=== PATIENT | female | born 1995 | race Caucasian/White ===

== ENCOUNTER 2018-11-21 05:54 | Day surgery (SDC) | payer BC ==
[2018-11-17 16:41] VITALS: BMI 25.7
[~2018-11-21] VITALS: Ht 160 cm; Wt 64.7 kg
[2018-11-21] VITALS (10 sets, daily range): BP systolic 102–116; BP diastolic 56–70; PULSE 60–92; RESP 14–22; Ht 160 cm; Wt 64.7 kg
[2018-11-21] MEDS ORDERED: CEFAZOLIN 2 GM/50 ML (PMX) 50 ML IVPB ONE (06:00)
[2018-11-21] MEDS ORDERED: LACTATED RINGER'S 1,000 ML IV* SCH (06:00)
[2018-11-21] MEDS ORDERED: BUPIVACAINE 0.5% (SDV) 30 ML INJ ONE (07:10)
[2018-11-21] MEDS ORDERED: LIDOCAINE 1%/EPI (1:100,000) (MDV) 20 ML ONE (07:11)
[2018-11-21] MEDS ORDERED: POLYMYXIN/BACITRACIN 1L IRRIG ONE (07:11)
[2018-11-21] MEDS ORDERED: GENTAMICIN 80 MG INJ ONE (07:13)
--- NOTE | 2018-11-21 07:14 | PREAC ---
Date/Time of Note Date/Time of Note DATE: 11/21/18 TIME: 07:14 Anesthesia Eval and Record Evaluation Time Pre-Procedure Interview DATE: 11/21/18 TIME: 07:14 Age 22 Sex female NPO: 8 hrs Preoperative diagnosis Left axillary tumor Planned procedure Excision of tumor and flap repair Past Medical History Past Medical History: None Surgery & Anesthesia Issues No known issue Meds Anticoagulation: No Beta Gino within 24 hr: No Reason Beta Gino not given: Pt. not on B-Gino No Active Prescriptions or Reported Meds Current Medications Lactated Ringer's 1,000 ml @ 25 mls/hr Q24H IV* ; Start 11/21/18 at 06:00; Stop 11/22/18 at 21:59 Meds reviewed: Yes Allergies Coded Allergies: No Known Allergy (Unverified , 11/21/18) Allergies Reviewed: Yes Labs/Studies Labs Reviewed: Reviewed by anesthesiologist test: Negative Pre-procedure Exam Airway: Adequate mouth opening Mallampati: Mallampati I Teeth: Normal Lung: Normal Heart: Normal ASA Physical Status ASA physical status: 1 Emergency: None Planned Anesthetic General/MAC: LMA Planned Pain Management Parenteral pain med Pre-operative Attestations Prior to commencing anesthesia and surgery, the patient was re-evaluated, there was verification of: *The patient's identity *The results of appropriate recent lab work and preoperative vital signs *The above evaluation not changing prior to induction *Anesthetic plan, risk benefits, alternative and complications discussed with patient/family; questions answered; patient/family understands, accepts and wishes to proceed. PEDRITO PRATER MD Nov 21, 2018 07:14
[2018-11-21] MEDS ORDERED: MIDAZOLAM (2 MG/ML) 5 ML CUP PO ONE (07:15)
[2018-11-21] MEDS ORDERED: PROPOFOL 20 ML ONE (07:30)
[2018-11-21] MEDS ORDERED: LIDOCAINE 2% (SDV) 5 ML INJ ONE (07:30)
[2018-11-21] MEDS ORDERED: ONDANSETRON 4 MG INJ ONE (07:55)
[2018-11-21] MEDS ORDERED: MEPERIDINE 100 MG INJ ONE (07:55)
[2018-11-21] MEDS ORDERED: METOCLOPRAMIDE 10 MG INJ ONE (07:55)
[2018-11-21] MEDS ORDERED: CEFAZOLIN 1 GM INJ ONE (07:55)
--- NOTE | 2018-11-21 07:57 | HPN ---
Date/Time of Note Date/Time of Note DATE: 11/21/18 TIME: 07:56 Interval H&P Admission Note Pt. seen H&P reviewed: No system changes SADIE GARCIA MD Nov 21, 2018 07:57
[2018-11-21] MEDS ORDERED: FENTAnyl 50 MCG/ML VIAL IV PRN ×3 (09:00)
[2018-11-21] MEDS ORDERED: MEPERIDINE 25 MG INJ IV PRN (09:00)
[2018-11-21] MEDS ORDERED: HYDROmorphONE 1 MG/5 ML IV SYRINGE IV PRN ×3 (09:00)
[2018-11-21] MEDS ORDERED: MIDAZOLAM 1 MG/ML 2 ML INJ IV PRN (09:00)
[2018-11-21] MEDS ORDERED: ONDANSETRON 4 MG INJ IV PRN (09:00)
[2018-11-21] MEDS ORDERED: METOCLOPRAMIDE 10 MG INJ IV PRN (09:00)
[2018-11-21] MEDS ORDERED: MUPIROCIN 2% 22 GM OINT TOP SCH (09:00)
[2018-11-21] MEDS ORDERED: DIPHENHYDRAMINE 50 MG INJ IV PRN (09:00)
[2018-11-21] MEDS ORDERED: OXYCODONE/ACETAMINOPHEN (5/325) TAB PO PRN ×2 (09:00)
[2018-11-21] MEDS ORDERED: NALOXONE (0.4 MG/ML) INJ ONE (09:34)
--- NOTE | 2018-11-21 09:44 | OPPN ---
Date/Time of Note Date/Time of Note DATE: 11/21/18 TIME: 09:34 Operative Report Preoperative Diagnosis Left Axillary Tumor, Enlarging, Deep, Symptomatic Postoperative Diagnosis Left Axillary Tumor, Enlarging, Deep, Symptomatic Operation/Procedure Performed Excision of Deep and Enlarging Tumor of Left Axilla (12.0 cm. X 8.0 cm.) and Fasciocutaneous Flap Reconstruction Surgeon Sadie Bunn M.D. web production assistant None Anesthesia: general, other (Maninder, Jay Webb M.D. , and 40 ml. of 05% Lidocain, 0.125% Marcain, and 1/200,000 Epinephrine Local Anesthetic Injection) Estimated blood loss: 0 - 10 ml's (5.0 ml.) Transfusion Required none Specimen Left Axillary Tumor , in Formalin, Grafts/Implants none Complications none SADIE BUNN MD Nov 21, 2018 09:44
--- NOTE | 2018-11-21 11:14 | PAC ---
Date/Time of Note Date/Time of Note DATE: 11/21/18 TIME: 11:14 Post-Anesthesia Notes Post-Anesthesia Note Last documented vital signs Vital Signs Date Temp Pulse Resp B/P (MAP) Pulse Ox O2 O2 Flow FiO2 Time Delivery Rate 11/21/18 72 14 106/66 100 Room Air 10:20 (79) 11/21/18 98.9 09:55 Activity: WNL Respiratory function: WNL Cardiovascular function: WNL Mental status: Baseline Pain reasonably controlled: Yes Hydration appropriate: Yes Nausea/Vomiting absent: Yes PEDRITO PRATER MD Nov 21, 2018 11:14
--- NOTE | 2018-11-21 13:45 | OPR ---
DATE OF OPERATION: 11/21/2018 PREOPERATIVE DIAGNOSIS: Enlarging left axillary tumor, deep, symptomatic. FINAL DIAGNOSIS: Enlarging left axillary tumor, deep, symptomatic. OPERATION PERFORMED: Excision of deep and enlarging tumor of left axilla (12 cm x 8 cm) and fasciocu taneous flap reconstruction. SURGEON: Sadie Bunn MD BOX SEALING INSPECTOR: None. ANESTHESIA: General laryngeal mask airway. ANESTHESIOLOGIST: Artemio Webb MD ANESTHESIA: Local anesthetic infiltration of 40 mL of 0.5% lidocaine, 0.125% Marcaine and 1:200,000 epinephrine solution. ESTIMATED BLOOD LOSS: 5 mL. DRAINS: None. SPECIMEN: Left axillary tumor in formalin to pathology. DRESSING: Bactroban ointment, tie-over dressing using dry sterile dressing and Adaptic covered by dr coyne sterile dressing, Mastisol and Tegaderm with ABD pad and Medipore tape. OPERATIVE PROCEDURE IN DETAILS: The patient received 2 grams of intravenous Ancef as preoperative an tibiotic. Also when the patient is in sitting position, markings were made for the planned procedure in the holding area. Next, in the operating room with the patient in supine position following adeq uate monitoring and induction of adequate level of general anesthesia using laryngeal mask airway by Dr. Webb, anesthesiologist, the arm was placed in abduction and external rotation for the axillary prasad or to become identifiable according to the markings. The following surgical pause and routine prep a nd drape, operation was begun by 2 cm skin incision that had to be enlarged to 3 cm over the tumor. This incision was deepened through subcutaneous tissue until the deep tumor was reached. Dissection around the tumor was continued carefully identifying and avoiding any and all of axillary contents an d neurovascular structures. Of note is the tumor penetrating into the axillary area which was carefu lly dissected and freed from the axilla. Specimen was therefore released and removed and was sent to pathology in formalin for examination. Operative area was irrigated using copious amount of triple antibiotic solution. Hemostasis was carefully checked and assured throughout the procedure using kamari ctrocoagulation. Adequate amount of local anesthetic solution was injected at the base and periphery of operative area in order to provide postoperative pain control. Closure was then followed due to the size, direction and location of the defect. The closure caused deformity and web formation in th e axillary area; therefore, a double advancement fasciocutaneous flap had to be elevated and advanced in order to reconstruct the defect without tension formation. This was set in place using int errupted and continuous stitches of 2-0 Monocryl. Dressing was then applied using 3-0 Monocryl sutur es for tie-over dressing and the completion of the dressing as mentioned above. The patient tolerate d this procedure very well and left the operating room to the recovery room awake, stable and in comf ortable, satisfactory and extubated condition. Dictated By: SADIE ZAMORA/EUGENIO Conf#: [id number] DID#: [id number]
== END 2018-11-21 12:50 | disposition home or self-care (01) ==
LOC: SDS 05:54
PROVIDERS: ATTEND Plastic Surgery
DX: D17.22 Benign lipomatous neoplasm of skin and subcutaneous tissue of left arm (principal)
CPT/HCPCS: 11406; 15736; 85610; 85730; 88307; J0690; J1580; J2175; J2310; J2405; J2765; Z7610